=== PATIENT | male | born 1965 | race Caucasian/White ===

== ENCOUNTER 2019-04-28 12:36 | Outpatient (CLI) | payer OTHER, BC, SELFPAY ==
--- NOTE | ~2019-04-28 | XR_ITS ---
EXAMINATION: XR_CERV2-3V_CR DATE: 04/28/2019 13:07 INDICATION: Cervical spine fusion. TECHNIQUE: 3 views of cervical spine were obtained. COMPARISON: None. FINDINGS: There is 7 degrees levocurvature of cervicothoracic spine. There are changes of anterior fu mil procedure from C6 to T1 with interbody devices and anterior plate and screws. There is severely decreased disc height at C5-C6. At C5-C6, there is moderate right and severe left uncovertebral joint osteoarthritis. There is multilevel mild facet joint osteoarthritis. There is mild central canal yassine nosis at C5-C6 and C6-C7. No prevertebral soft tissue swelling. IMPRESSION: 1. Anterior fusion procedure from C6 to T1. 2. Severe cervical spondylosis. Reviewed, dictated and finalized at location A. [employer]
== END 2019-04-28 12:37 | disposition home or self-care (01) ==
PROVIDERS: PCP Family Medicine; Visit Provider Neurological Surgery
DX: Z98.1 Arthrodesis status (principal); M47.812 Spondylosis without myelopathy or radiculopathy, cervical region
CPT/HCPCS: 72040

== ENCOUNTER 2019-05-25 11:08 | Outpatient (CLI) | payer OTHER, BC, SELFPAY ==
--- NOTE | ~2019-05-25 | XR_ITS ---
EXAMINATION: XR_CERV2-3V_CR EXAM DATE: 05/25/2019 11:50 INDICATION: Spinal fusion. Neck pain. TECHNIQUE: Cervical spine frontal, lateral, lateral swimmers, and open-mouth odontoid projections. C omparison is made to prior examination from 04/28/2019. FINDINGS: Anterior and interbody fusion C6-T1, intact. There is moderate to severe disc disease at C 5-6. Probably moderate uncovertebral joint arthropathy at this level causing some neural foraminal st enosis. Otherwise mild to moderate cervical arthropathy. The odontoid process is intact. The lateral masses of C1 line up with C2. Prevertebral soft tissue and pre-dens space are within normal limits. Lung apices unremarkable. IMPRESSION: Intact cervical fusion C6-T1. Spondylosis unchanged. Reviewed, dictated and finalized at location A. OR LPN
== END 2019-05-25 11:09 | disposition home or self-care (01) ==
PROVIDERS: PCP Family Medicine; Visit Provider Neurological Surgery
DX: M47.892 Other spondylosis, cervical region (principal); Z98.1 Arthrodesis status
CPT/HCPCS: 72040

== ENCOUNTER 2019-07-11 10:41 | Outpatient (CLI) | payer OTHER, BC, SELFPAY ==
--- NOTE | ~2019-07-11 | XR_ITS ---
EXAMINATION:XR_CERV2-3V_CR DATE: 07/11/2019 11:05 INDICATION: Spinal fusion, neck pain TECHNIQUE: AP and lateral views of the cervical spine are obtained. COMPARISON: 05/25/2019 FINDINGS: Alignment is normal. The odontoid is intact. No fracture is identified. There are changes o f anterior fusion from C7 through T1. The vertebral body heights are maintained. There is advanced lo ss of intervertebral disc space height at C5-6. Small degenerative osteophytes project from the anter ior endplates of multiple vertebral bodies. There is moderate right and severe left uncovertebral rosalba nt osteoarthritis at C5-6. Mild central canal stenosis is again noted at C5-6 and C6-7. Prevertebral soft tissues are normal. IMPRESSION: 1. Severe cervical spondylosis without acute findings or significant interval change. 2. Changes of anterior fusion procedure from C6 through T1. Reviewed, dictated and finalized at location A. IMPRESSION: 1. Severe cervical spondylosis without acute findings or significant interval c hange. 2. Changes of anterior fusion procedure from C6 through T1.
== END 2019-07-11 10:42 | disposition home or self-care (01) ==
PROVIDERS: PCP Family Medicine; Visit Provider Neurological Surgery
DX: Z98.1 Arthrodesis status (principal); M47.812 Spondylosis without myelopathy or radiculopathy, cervical region
CPT/HCPCS: 72040

== ENCOUNTER 2019-10-13 14:29 | Outpatient (CLI) | payer OTHER, BC, SELFPAY ==
--- NOTE | ~2019-10-13 | XR_ITS ---
EXAMINATION: XR_CERV2-3V_CR EXAM DATE: 10/13/2019 14:52 INDICATION: Cervical fusion. TECHNIQUE: Cervical spine frontal, lateral, lateral swimmers, and open-mouth odontoid projections. There is no prior study for comparison. FINDINGS: There is cervical fusion C6-T1 with interbody devices and anterior plate, intact. There is moderate disc disease at C5-6., With some amount of neural foraminal stenosis at this level due to u ncovertebral joint arthropathy. Otherwise mild to moderate cervical arthropathy. The odontoid process is intact. The lateral masses of C1 line up with C2. Prevertebral soft tissue and pre-dens space ar e within normal limits. IMPRESSION: 1. Intact fusion C6-T1. 2. Mild to moderate cervical spondylosis. Reviewed, dictated and finalized at location A.
== END 2019-10-13 14:30 | disposition home or self-care (01) ==
LOC: ANHIMG 14:35
PROVIDERS: PCP Family Medicine; Visit Provider Neurological Surgery
DX: M47.812 Spondylosis without myelopathy or radiculopathy, cervical region (principal)
CPT/HCPCS: 72040

== ENCOUNTER 2022-08-04 14:56 | Emergency (ER) | payer BC, SELFPAY ==
[2022-08-04] VITALS (20 sets, daily range): BP systolic 120–142; BP diastolic 75–98; PULSE 50–74; RESP 10–23; TEMP 36.6; O2SAT 97–100
--- NOTE | ~2022-08-04 | XR_ITS ---
EXAMINATION: XR chest 2V 08/04/2022 15:29 INDICATION: Chest pain PROCEDURE: PA and lateral views of the chest COMPARISON: 10/16/2018 FINDINGS: The lungs are clear. The cardiomediastinal silhouette is within normal limits. There are no pleural effusions. There is no pneumothorax suspected. IMPRESSION: 1: NO ACUTE CARDIOPULMONARY DISEASE. Reviewed, dictated and finalized at location L.
--- NOTE | 2022-08-04 14:56 | ECG_ITS ---
Measurements Intervals [place] Rate: 63 P: 16 HI: 150 QRS: 79 QRSD: 118 T: 42 QT: 370 QTc: 379 Interpretive Statements SINUS RHYTHM INCOMPLETE RIGHT BUNDLE BRANCH BLOCK BASELINE WANDER- V1 BORDERLINE ECG COMPARED TO ECG 10/16/2018 07:46:37 INCOMPLETE RIGHT BUNDLE-BRANCH BLOCK NOW PRESENT Electronically Signed On 08-04-2022 18:30:44 CDT by Deep Rothman D.O.
[2022-08-04 15:20] LABS: Basophils Percent Auto 0.3 % (0.2-1.2); Eosinophils Absolute Auto 0.1 K/mm3 (0-0.3); Eosinophils Percent Auto 1.2 % (0-4.4); Hematocrit 49.5 % (42.0-52.0); Hemoglobin 16.2 g/dL (14.0-18.0); Immature Granulocyte Absolute 0.01 K/mm3 (0.00-0.031); Immature Granulocyte Percent A 0.2 % (0-0.5); Lymphocytes Absolute Auto 2.09 K/mm3 (0.9-3.2); Lymphocytes Percent Auto 36.2 % (18.3-44.2); Mean Corpuscular HGB Conc 32.7 g/dl (32-36); Mean Corpuscular Hemoglobin 29.5 pg (26-34); Mean Corpuscular Volume 90.2 fl (80-100); Mean Platelet Volume 10.8 fl (7.4-10.4); Monocytes Absolute Auto 0.4 K/mm3 (0.1-0.6); Monocytes Percent Auto 6.7 % (2.6-8.5); Neutrophils Absolute Auto 3.2 K/mm3 (1.3-6.7); Neutrophils Percent Auto 55.4 % (45.5-73.1); Platelet Count Result 244 k/mm3 (150-375); Red Blood Count 5.49 M/mm3 (4.6-6.20); Red Cell Distribution Width 13.2 % (11.5-14.5); White Blood Count 5.8 K/mm3 (4.5-10.0)
[2022-08-04 15:25] LABS: Partial Thromboplastin Time 29.6 SECONDS (22.3-36.8); Prothrombin Time 13.1 Seconds (11.1-14.7)
[2022-08-04 15:26] LABS: Alanine Aminotransferase 31 U/L (6-50); Albumin Level 4.7 g/dL (3.5-5.1); Alkaline Phosphatase 50 U/L (38-126); Anion Gap 8 mmol/L (8-16); Aspartate Amino Transferase 31 U/L (17-59); Bilirubin,Total 0.5 mg/dL (0.2-1.3); Blood Urea Nitrogen 13 mg/dL (9-20); Calcium 9.5 mg/dL (8.4-10.2); Carbon Dioxide 31 mmol/L (22-30); Chloride 101 mmol/L (98-107); Estimated CRCL calculation 100 ml/min; Estimated Glomerular Filt Rate > 60; Glucose 114 mg/dL (65-110); Lipase 57 U/L (23-300); Potassium 4.1 mmol/L (3.4-5.0); Sodium 140 mmol/L (137-145)
[2022-08-04 15:38] LABS: Troponin I < 0.012 ng/mL (0.000-0.034)
--- NOTE | 2022-08-04 17:05 | ED.CHESTPAIN ---
HPI - Chest Pain General Chief Complaint: Chest Pain <VANDANA Lozada Last Filed: 08/05/22 02:13> Stated Complaint: chest pain <VANDANA Lozada Last Filed: 08/05/22 02:13> Time Seen by Provider: 08/04/22 17:04 <VANDANA Lozada Last Filed: 08/05/22 02:13> Source: patient <VANDANA Lozada Last Filed: 08/05/22 02:13> Mode of arrival: ambulatory <VANDANA Lozada Filed: 08/05/22 02:13> Limitations: no limitations <VANDNAA Lozada Last Filed: 08/05/22 02:13> History of Present Illness HPI narrative: Patient is a 57 y/o male who presents to the ED with c/o chest pain. Patient reports having intermittent daily left-sided chest pain, radiating into his left shoulder and throat for the past 1 month. He states the pain is fairly constant throughout the day, but does seem to be slightly aggravated with exertion. He also feels shortness of breath at times with exertion, as well as lightheadedness and indigestion intermittently. He feels better when he sits and rests for a while. He has tried taking aspirin and Tums for his pain. He denies any pleuritic pain, passing out, abdominal pain, nausea, vomiting, headache, vision changes, lower extremity pain or swelling, fevers, numbness, tingling, recent cough or cold symptoms. Patient denies history of hypertension, hyperlipidemia, diabetes, smoking, family history of heart disease. No history of blood clots, but his sister did have blood clots while she was . <VANDANA Lozada Last Filed: 08/05/22 02:13> Related Data Allergies/Adverse Reactions: Allergies Allergy/AdvReac Type Severity Reaction Status Date / Time No Known Allergies Allergy Verified 08/04/22 17:09 <VANDANA Lozada Last Filed: 08/05/22 02:13> Review of Systems Review of Systems: CONSTITUTIONAL: Denies fever, chills, or sweats. EYES: Denies visual changes. ENT: Denies rhinorrhea, congestion, sore throat. CARDIOVASCULAR: See HPI. RESPIRATORY: See HPI. GASTROINTESTINAL: Denies abdominal pain, nausea, vomiting. MUSCULOSKELETAL: See HPI. NEUROLOGIC: See HPI. <Maddie Lock PA-C - Last Filed: 08/05/22 02:13> All systems reviewed & are unremarkable except as noted in HPI and below <Maddie Lock PA-C - Last Filed: 08/05/22 02:13> PMFSH Past Medical History Medical History: Medical History No pertinent past medical history <Maddie Lock PA-C - Last Filed: 08/05/22 02:13> Surgical History Surgical History: Surgical History S/P cervical spinal fusion <Maddie Lock PA-C - Last Filed: 08/05/22 02:13> Social History Social History: Social History Smoking status: Former smoker Alcohol intake: current <Maddie Lock PA-C - Last Filed: 08/05/22 02:13> Exam Narrative: GENERAL: Well appearing, well-nourished, non-toxic, in no acute distress. HEAD: Normocephalic, atraumatic. EYES: PERRLA/EOMI, conjunctiva clear. NECK: Supple. No adenopathy, no masses. RESPIRATORY: Airway patent, respirations nonlabored. Clear to auscultation bilaterally, no rales, rhonchi, wheezing. CARDIOVASCULAR: Regular rate and rhythm without murmurs, rubs, or gallops. Peripheral pulses 2+ and equal bilaterally. ABDOMINAL: Soft, no tenderness throughout upper abdomen, nondistended, no hepatosplenomegaly. Normoactive BS. MUSCULOSKELETAL: Moves all extremities. Strength/ROM intact without gross deformities. No chest wall tenderness to palpation. No edema. No calf tenderness. SKIN: Warm, dry, normal color. No rashes. NEURO: A&O X3. Speech clear. Cranial nerves II-XII grossly intact. Steady gait. No ataxic movements. No focal deficits. PSYCHIATRIC: Approp
[2022-08-04 18:04] LABS: D Dimer 0.32 ug/mL (<0.48)
[2022-08-04 18:12] LABS: Troponin I < 0.012 ng/mL (0.000-0.034)
[2022-08-04] MEDS: SODIUM CHLORIDE 0.9% IV 1,000 ML 999 ML IV CONT (18:42)
[2022-08-04] MEDS: BELLADONNA ALK/PHENOB ELIX 10 ML, MAG HYDROX/ALUMINUM HYD/SIMETH 30 ML, LIDOCAINE HCL 2... PO (18:42)
== END 2022-08-04 19:37 | disposition home or self-care (01) ==
PROVIDERS: Emergency Medicine; Emergency Provider Physician Assistant; PCP Family Medicine
DX: R07.89 Other chest pain (principal); K21.9 Gastro-esophageal reflux disease without esophagitis; Z98.1 Arthrodesis status; Z87.891 Personal history of nicotine dependence; I45.10 Unspecified right bundle-branch block
CPT/HCPCS: 36415; 71046; 80053; 83690; 84484; 85025; 85380; 85610; 85730; 93005; 99284; A9270; J7030